=== PATIENT | male | born 1990 | race African-American/Black ===

== ENCOUNTER 2024-03-15 01:39 | Emergency (ER) | payer MEDICAID ==
[~2024-03-15] VITALS: Ht 182.9 cm; Wt 100.0 kg
[2024-03-15 01:43] VITALS: BP 149/110; PULSE 75; RESP 20; TEMP 36.6; O2SAT 99
[2024-03-15] MEDS ORDERED: NAPR-1176 MT (04:36)
== END 2024-03-15 08:30 | disposition home or self-care (01) ==
LOC: ER 01:39
DX: S52.691A Other fracture of lower end of right ulna, initial encounter for closed fracture (principal); X58.XXXA Exposure to other specified factors, initial encounter; Y93.89 Activity, other specified; Y92.89 Other specified places as the place of occurrence of the external cause; Y99.8 Other external cause status
CPT/HCPCS: 29125; 73110; 99283; A4565